=== PATIENT | female | born 1955 | race Caucasian/White ===

== ENCOUNTER → 2016-12-20 | Outpatient (CLI) | payer BC ==
[~2016-12-20] MED LIST: AMLO-110 PO
--- NOTE | 2016-12-21 13:04 | MAMMOGRAPHY REPORT ---
BILATERAL DIGITAL SCREENING MAMMOGRAM TOMOSYNTHESIS WITH CAD: 12/20/2016 CLINICAL HISTORY: Routine screening. TECHNIQUE: Breast tomosynthesis in addition to standard 2D mammography was performed. Current study was also evaluated with a Computer Aided Detection (CAD) system. COMPARISON: Comparison is made to exam dated: 02/19/2015 mammogram - [facility]. BREAST COMPOSITION: There are scattered areas of fibroglandular density in both breasts. FINDINGS: The parenchymal pattern is unchanged. No developing mass, architectural distortion or clus ter of suspicious microcalcifications is seen in either breast. IMPRESSION: ACR BI-RADS CATEGORY 2: BENIGN There is no mammographic evidence of malignancy. A 1 year screening mammogram is recommended. The pa tient will receive written notification of the results. Approximately 10% of breast cancers are not detected with mammography. A negative mammographic report should not delay biopsy if a clinically suggestive mass is present. Alissa Pedersen M.D. ay/:12/20/2016 17:15:43 Babbitt Spinner: Kwame COLE(Madison)(Daw[place]), [facility] letter sent: Normal 1/2 BI-RADS Code: ACR BI-RADS Category 2: Benign
== END | disposition home or self-care (01) ==
LOC: C.MAMM 16:08
PROVIDERS: ATTEND Family Medicine
DX: Z12.31 Encounter for screening mammogram for malignant neoplasm of breast (principal)

== ENCOUNTER → 2018-01-25 | Outpatient (CLI) | payer OTHER ==
[~2018-01-25] MED LIST changes: -AMLO-110 PO; +AMLO5TAB3 PO
--- NOTE | 2018-01-26 14:35 | MAMMOGRAPHY REPORT ---
BILATERAL DIGITAL SCREENING MAMMOGRAM TOMOSYNTHESIS WITH CAD: 01/25/2018 CLINICAL HISTORY: Routine screening. Patient has no complaints. TECHNIQUE: The study was acquired using full field digital technology and interpreted from soft copy. Breast tomosynthesis in addition to standard 2D mammography was performed. Current study was also ev aluated with a Computer Aided Detection (CAD) system. COMPARISON: Comparison is made to exams dated: 12/20/2016 mammogram and 02/19/2015 mammogram - [facility]. BREAST COMPOSITION: There are scattered areas of fibroglandular density in both breasts. FINDINGS: There are grouped calcifications within the right lower inner quadrant anteriorly, for which spot mag nification views and possible targeted ultrasound are recommended for further evaluation. These are shown to be associated with a nodular asymmetry on the tomosynthesis images, and may represent calcif ications within a cyst. Additionally, there is an asymmetry posterior to the left nipple on the cc v iew middle depth, which partially effaces on the repeat CC view and may represent normal overlapping fibroglandular tissue although spot compression tomosynthesis views and possible breast ultrasound ar e recommended for further evaluation. The remainder of both breasts are stable compared to prior exams, without suspicious masses, calcific ations, or areas of architectural distortion noted. IMPRESSION: ACR BI-RADS CATEGORY 0: INCOMPLETE EVALUATION: NEED ADDITIONAL IMAGING EVALUATION Left breast asymmetry and right breast calcifications, for which additional imaging evaluation is rec ommended. The patient will be called to schedule an appointment. Some breast cancers are not detected with mammography. A negative mammographic report should not alayna y biopsy if a clinically suggestive mass is present. Madelin Soriano M.D. ah/:01/25/2018 16:42:10 Lacquer Spray Booth Operator: RT Kathrine(Madison)(M), [facility] letter sent: Addl Imaging 0 BI-RADS Code: ACR BI-RADS Category 0: Incomplete Evaluation: Need Additional Imaging Evaluation
== END | disposition home or self-care (01) ==
LOC: C.MAMM 07:36
PROVIDERS: ATTEND Family Medicine
DX: Z12.31 Encounter for screening mammogram for malignant neoplasm of breast (principal); N64.89 Other specified disorders of breast; R92.0 Mammographic microcalcification found on diagnostic imaging of breast

== ENCOUNTER → 2018-02-06 | Outpatient (CLI) | payer OTHER ==
--- NOTE | 2018-02-07 13:50 | MAMMOGRAPHY REPORT ---
BILATERAL DIGITAL DIAGNOSTIC MAMMOGRAM TOMOSYNTHESIS AND TARGETED BILATERAL ULTRASOUND: 02/06/2018 CLINICAL HISTORY: Callback from screening mammography for right breast calcifications and left breast asymmetry. TECHNIQUE: Spot compression tomosynthesis left cc; spot magnification right CC and ML views were obta ined. COMPARISON: Comparison is made to exams dated: 01/25/2018 mammogram, 12/20/2016 mammogram, and 5 mammogram - [facility]. BREAST COMPOSITION: There are scattered areas of fibroglandular density in both breasts. FINDINGS: The CC spot compression tomosynthesis view of the left breast demonstrates effacement of th e 9 mm asymmetry in the middle one third of the breast slightly medial to the posterior nipple line. Currently, there is no persistent mass, asymmetry, architectural distortion or suspicious calcificat ion. The parenchymal pattern of the spot compression left cc view appears very similar to the prior 2016 and 2014 mammograms, suggesting it represents the patient's baseline. Spot magnification views of the right breast demonstrate a small grouping of faint amorphous and roun d microcalcifications in the lower inner anterior right breast, with associated nodularity. On the s pot magnification ML view, some of the calcifications demonstrate T cupping suggesting benign milk of calcium. The associated nodularity measures 4.6 x 3.5 mm and further evaluation with ultrasound was performed. Targeted ultrasound was performed in the lower inner right breast. In the 5:00 periareolar region, t here is a lobulated and circumscribed parallel isoechoic solid versus cystic mass with internal punct ate reflectors likely representing calcifications. This mass measures 4.7 x 2.3 x 4.7 mm. Incidenta lly seen is a second similar appearing gently lobulated isoechoic circumscribed mass measuring 3.7 x 2.5 x 3.6 mm. These could represent complicated cysts or possibly papillomas. Given the indetermina te possible solid nature, definitive characterization with an ultrasound-guided core needle biopsy is recommended. No other suspicious mass, architectural distortion or cluster of microcalcifications is seen. IMPRESSION: ACR BI-RADS CATEGORY 4: SUSPICIOUS, ULTRASOUND ACR BI-RADS CATEGORY 4: SUSPICIOUS 1. Right breast ultrasound-guided core biopsy is recommended for an indeterminate solid versus cysti c 4.7 mm mass with associated calcifications in the 5:00 periareolar right breast. This is thought t o correspond with the mammographic calcifications and associated nodularity. 2. There is a second adjacent mass superficial to the first measuring 3.7 mm that has a similar appe arance. Pending benign pathology results, could reassess this similar-appearing mass in 6 months wit h repeat targeted ultrasound. 3. There is effacement of the left breast asymmetry with supplemental spot compression tomosynthesis images, and a similar appearance to prior mammograms, suggesting this represented benign normal over lapping fibroglandular tissue. These results and recommendations were discussed with the patient at the time of the exam. She tenta tively scheduled the right breast biopsy prior to leaving the department. Some breast cancers are not detected with mammography. A negative mammographic report should not alayna y biopsy if a clinically suggestive mass is present. Alissa Pedersen M.D. ay/:02/06/2018 14:50:22 Logging Truck Driver: RT Leobardo(Madison)(M), [facility]; Ray Luevano [facility] letter sent: Abnormal 4/5 OVERALL STUDY BIRADS: 4 Suspicious abnormality
== END | disposition home or self-care (01) ==
LOC: C.MAMM 08:06
PROVIDERS: ATTEND Family Medicine
DX: N64.9 Disorder of breast, unspecified (principal); R92.1 Mammographic calcification found on diagnostic imaging of breast; N63.10 Unspecified lump in the right breast, unspecified quadrant

== ENCOUNTER → 2018-02-15 | Outpatient (CLI) | payer OTHER ==
--- NOTE | 2018-02-15 08:15 | Discharge Instructions ---
Discharge Instructions Procedure Procedure Date: Feb 15, 2018. Reason for visit: Right Mass With Calcs. Discharge Discharge Date: Feb 15, 2018. Discharge Diagnosis: status post breast biopsy Instructions Activity Recommendations: No limitations, Additional Limitations (see below) Return to School/Work: no limitations Recommended Home Diet: No Limitations Provider Instructions: ACTIVITY RECOMMENDATIONS: * No lifting, pushing, pulling or exercising the affected side for three days. RETURN TO SCHOOL/WORK: * You may return to work/school after the procedure, but do not perform any strenuous activities for 24 to 48 hours. MEDICATIONS: * Tylenol (two 325 mg) every four to six hours if needed for mild pain (if not allergic to Tylenol). DIET: * Resume previous diet. SPECIAL CARE INSTRUCTIONS: * Keep biopsy site dry for 24 hours. May shower after 24 hours, but do not soak (bathe) incision. * May remove Tegaderm (plastic patch) 24 hours after procedure * Leave the steri-strips on for one week. Allow the steri-strips to fall off by themselves. If not off after one week, you may remove them. You may place a Bandaid crosswise over the strips, if desired. * Apply ice 10 minutes on and 10 minutes off as needed. * Wear a bra at bedtime to sleep more comfortably for 2-3 days. * Your referring physician should have the results after approximately 5 to 7 business days. * Call for unusual bleeding, fever, drainage, etc or if you have any questions call during normal business hours or after hours call Dr Soriano, [phone]. FOLLOW UP VISIT: Follow-up with Referring Physician as scheduled. Allergies Coded Allergies: No Known Allergies (Unverified , 12/25/14) Mallorie Oden Recommendations: Call your doctor if: * Temperature above 101 degrees * Pain not relieved by pain medicine ordered * There is increased drainage or redness from any incision * You have any unanswered questions or concerns. Your Doctors Instructions noted above were prepared by provider Madelin Soriano. Patient Signature Section: Patient Instructions Signature Page Staceybradley Rosenbaum Patient (or Guardian) Signature/Date: I have read and understand the instructions given to me by my caregivers. Caregiver/RN/Doctor Signature/Date: The above-named patient and/or guardian has received patient instructions on this date. + Original Patient Signature Page (only) stays with chart. Please make copy for patient.
--- NOTE | 2018-02-15 15:06 | MAMMOGRAPHY REPORT ---
ULTRASOUND GUIDED BIOPSY RIGHT BREAST: 02/15/2018 CLINICAL HISTORY: Right 5:00 periareolar breast mass. PATIENT CONSENT: The procedure, risks and benefits were discussed with the patient and informed writt en consent was obtained. A timeout was performed immediately prior to the procedure. PROCEDURE DESCRIPTION: With ultrasound guidance, aseptic technique, and lidocaine as the local anesth etic (1% lidocaine to anesthetize the skin and 1% lidocaine with epinephrine to anesthetize the deepe r tissues), the mass of concern in the right 5:00 periareolar breast (the more posterior mass) was sa mpled 4 times with a 14-gauge Achieve biopsy needle. Immediately thereafter, with ultrasound guidanc e, a ribbon shaped metallic localizer clip was placed at the biopsy site. Direct pressure was appli ed to the site immediately post procedure until hemostasis was achieved. Postprocedure unilateral ma mmograms were performed to confirm clip placement; see separate dictation for details. Steri-Strips were placed over the site and covered with an Opsite patch. The patient tolerated the procedure with out complication. She was given wound care instructions. A specimen radiograph was performed of the samples, which shows no clear calcifications to be present within the specimens. The specimens were sent to pathology for analysis. COMPARISON: Comparison is made to exams dated: 02/06/2018 ultrasound, 02/06/2018 mammogram, 01/25/2018 m ammogram, 12/20/2016 mammogram, and 02/19/2015 mammogram - [facility]. IMPRESSION: ULTRASOUND GUIDED BIOPSY Ultrasound-guided core needle biopsy of the right 5:00 periareolar breast mass, with clip placement. The patient will receive pathology results from her referring provider. Pending benign pathology re sults, recommend follow-up diagnostic mammograms and ultrasound of the right breast in 6 months to re evaluate the other similar-appearing mass in the right 5:00 breast. Madelin Soriano M.D. /:02/15/2018 08:25:55 Leather Cutter: Zari Munoz, [facility]
--- NOTE | 2018-02-15 15:06 | MAMMOGRAPHY REPORT ---
UNILATERAL RIGHT DIGITAL DIAGNOSTIC MAMMOGRAM TOMOSYNTHESIS: 02/15/2018 CLINICAL HISTORY: Status post right breast ultrasound-guided biopsy. TECHNIQUE: Breast tomosynthesis in addition to standard 2D mammography was performed. Postprocedural right CC and MLO 2D and tomosynthesis images were obtained. COMPARISON: Comparison is made to exams dated: 02/06/2018 mammogram, 01/25/2018 mammogram, 12/20/2016 ma mmogram, and 02/19/2015 mammogram - [facility]. BREAST COMPOSITION: There are scattered areas of fibroglandular density in right breast. FINDINGS: A new biopsy marker clip is seen at the site of the biopsied mass and associated calcificat ions in the right medial anterior breast. No significant postbiopsy hematoma is seen. IMPRESSION: POST PROCEDURE IMAGING FOR MARKER PLACEMENT New biopsy marker clip status post right breast ultrasound-guided biopsy. Pathology results are pend ing. Some breast cancers are not detected with mammography. A negative mammographic report should not alayna y biopsy if a clinically suggestive mass is present. Madelin Soriano M.D. ah/:02/15/2018 08:23:42 Car Dropper: Zari Munoz [facility] BI-RADS Code: Post Procedure Imaging For Marker Placement
== END | disposition home or self-care (01) ==
LOC: C.MAMM 07:44
PROVIDERS: ATTEND Family Medicine
DX: N63.10 Unspecified lump in the right breast, unspecified quadrant (principal); R92.0 Mammographic microcalcification found on diagnostic imaging of breast; N60.11 Diffuse cystic mastopathy of right breast; N60.81 Other benign mammary dysplasias of right breast